=== PATIENT | female | born 1950 | race Caucasian/White ===

== ENCOUNTER 2020-09-28 08:21 | Emergency (ER) | payer MEDICARE, MEDICAID ==
[~2020-09-28] VITALS: Ht 170.2 cm; Wt 61.0 kg
[~2020-09-28 08:21] MED LIST: ASPI-1265 PO; BAC10T PO; CHLO25TA10 PO; CLOP75TA15 PO; LACT1CAP26 PO; LEVO25TA50 PO; LOSA100T57 PO; MECL-183 PO; METO-384 PO; NIFE90TA44 PEG; NITR0.4T51 SL; NYSPWD TP; ROSU40TA PO
[2020-09-28 08:33] VITALS: BP 167/73
[2020-09-28] MEDS ORDERED: AZIT250T29 PO (09:56)
== END 2020-09-28 10:10 | disposition home or self-care (01) ==
LOC: ER 08:21
DX: R05 Cough (principal); R09.81 Nasal congestion; J02.9 Acute pharyngitis, unspecified; Z20.828 Contact with and (suspected) exposure to other viral communicable diseases; Z88.8 Allergy status to other drugs, medicaments and biological substances; Z88.2 Allergy status to sulfonamides; Z88.6 Allergy status to analgesic agent; Z79.899 Other long term (current) drug therapy; Z88.1 Allergy status to other antibiotic agents
CPT/HCPCS: 36415; 71045; 87635; 99284

== ENCOUNTER 2021-05-05 13:34 | Emergency (ER) | payer MEDICARE, MEDICAID ==
[~2021-05-05] VITALS: Ht 167.6 cm; Wt 68.2 kg
[~2021-05-05 13:34] MED LIST changes: -MECL-183 PO; +MECL-226 PO
[2021-05-05] MEDS ORDERED: ibuprofen tablet 400 MG TABLET PO ONE (14:20)
[2021-05-05 15:15] VITALS: BP 131/63
[2021-05-07] MEDS ORDERED: NITR0.4T51 SL (17:11)
== END 2021-05-05 15:16 | disposition home or self-care (01) ==
LOC: ER 13:35
DX: M79.602 Pain in left arm (principal); G89.29 Other chronic pain; M25.562 Pain in left knee; Z87.440 Personal history of urinary (tract) infections; Z90.710 Acquired absence of both cervix and uterus; Z98.890 Other specified postprocedural states; Z56.0 Unemployment, unspecified; Z88.2 Allergy status to sulfonamides; Z91.030 Bee allergy status; Z88.1 Allergy status to other antibiotic agents; Z88.8 Allergy status to other drugs, medicaments and biological substances; Z79.82 Long term (current) use of aspirin; Z79.899 Other long term (current) drug therapy; W19.XXXA Unspecified fall, initial encounter; Y93.89 Activity, other specified; Y92.89 Other specified places as the place of occurrence of the external cause; Y99.8 Other external cause status
CPT/HCPCS: 73080; 73564; 99284

== ENCOUNTER 2021-08-31 12:37 | Emergency (ER) | payer MEDICARE, MEDICAID ==
[~2021-08-31] VITALS: Ht 170.2 cm; Wt 90.9 kg
[~2021-08-31 12:37] MED LIST changes: -BAC10T PO; -LACT1CAP26 PO; -LEVO25TA50 PO; -MECL-226 PO; -NIFE90TA44 PEG; -NYSPWD TP
[2021-08-31 12:43] VITALS: BP 172/86
[2021-08-31] MEDS ORDERED: aspirin 81mg tab.chew PO ONE (12:50)
[2021-08-31 13:19] LABS: BASOPHILS % (AUTO) 0.6 % (0-1); EOSINOPHILS # (AUTO) 0.4 X10'3 (0-0.9); EOSINOPHILS % (AUTO) 4.6 % (0-6); HEMATOCRIT 41.1 % (35.0-45.0); HEMOGLOBIN 13.7 g/dl (12.0-16.0); LYMPHOCYTES # (AUTO) 2.1 X10'3 (1.1-4.8); LYMPHOCYTES % (AUTO) 24.7 % (21-51); MEAN CORPUSCULAR HEMOGLOBIN 29.6 PG (27.0-31.0); MEAN CORPUSCULAR HGB CONC 33.2 g/dL (33.0-36.5); MEAN CORPUSCULAR VOLUME 89.1 FL (78-98); MEAN PLATELET VOLUME 8.1 FL (7.4-10.4); MONOCYTES # (AUTO) 0.8 X10'3 (0-0.9); MONOCYTES % (AUTO) 9.2 % (2-12); NEUTROPHILS # (AUTO) 5.1 X10'3 (1.8-7.7); NEUTROPHILS % (AUTO) 60.9 % (42-75); PLATELET COUNT 239 X10'3 (140-440); RED BLOOD COUNT 4.62 X10'6 (4.20-5.60); RED CELL DISTRIBUTION WIDTH 14.6 % (11.5-14.5); WHITE BLOOD COUNT 8.4 X10'3 (4.5-11.0)
[2021-08-31 13:29] LABS: ALANINE AMINOTRANSFERASE 37 U/L (12-78); ALBUMIN 3.9 G/DL (3.4-5.0); ALKALINE PHOSPHATASE 126 IU/L (46-116); ANION GAP 11 (8-16); ASPARTATE AMINO TRANSFERASE 21 U/L (10-37); BILIRUBIN,TOTAL 0.3 MG/DL (0.1-1.0); BLOOD UREA NITROGEN 17 MG/DL (7-18); CALCIUM 10.4 MG/DL (8.5-10.1); CHLORIDE 109 MMOL/L (99-107); GLUCOSE 99 MG/DL (70-104); POTASSIUM 4.5 MMOL/L (3.5-5.1); SODIUM 141 MMOL/L (135-145); TOTAL CARBON DIOXIDE 21.3 MMOL/L (24-32); TOTAL PROTEIN 7.8 G/DL (6.4-8.2); eGFR 55 ML/MIN
[2021-08-31 13:37] LABS: MAGNESIUM 2.6 MG/DL (1.5-2.4)
[2021-08-31] MEDS ORDERED: HYDR28CR14 TOP (19:33)
== END 2021-08-31 19:45 | disposition home or self-care (01) ==
LOC: ER 12:38
DX: R21 Rash and other nonspecific skin eruption (principal); Z88.2 Allergy status to sulfonamides; Z88.8 Allergy status to other drugs, medicaments and biological substances; Z79.899 Other long term (current) drug therapy
CPT/HCPCS: 36415; 71045; 80053; 83735; 83880; 84484; 85025; 93005; 99285

== ENCOUNTER 2021-09-17 11:45 | Emergency (ER) | payer MEDICARE, MEDICAID ==
[~2021-09-17] VITALS: Ht 170.2 cm; Wt 90.9 kg
[~2021-09-17 11:45] MED LIST changes: +HYDR28CR14 TOP
--- NOTE | 2021-09-17 11:59 | NUR ---
JUDITH VIRGEN NP CALLED REPORT. PT HAS HAD RASH SINCE LATE AUGUST. HIGH B/P WEEKS AGO. 260/104, ASYMPTOMATIC. LAST VISIT , 200/90, CHANGES EKG. NO NEW MED ADJUSTMENTS. SEEN MEDICAL SCIENCE LIAISON IN JANUARY. CURRENTLY ON 50MG METOPROLOL SUC 50MG ER DAILY, 50MG LOSARTIN, PLAVIX 75MG DAILY. NO HX OF AFIB. EF 60% DECEMBER 2020. AORTIC REGUR, STENOSIS LEFT CAROTID 65% (NEEDS SURGICAL INTERVENTION) AND SUBCLAVIAN (OCCLUDED) DR. KRAFT.
[2021-09-17] MEDS ORDERED: aspirin 325mg tablet PO ONE (12:15)
[2021-09-17 12:32] LABS: BASOPHILS % (AUTO) 0.4 % (0-1); EOSINOPHILS # (AUTO) 0.3 X10'3 (0-0.9); EOSINOPHILS % (AUTO) 4.3 % (0-6); HEMATOCRIT 39.7 % (35.0-45.0); HEMOGLOBIN 13.5 g/dl (12.0-16.0); LYMPHOCYTES # (AUTO) 2.3 X10'3 (1.1-4.8); LYMPHOCYTES % (AUTO) 29.1 % (21-51); MEAN CORPUSCULAR VOLUME 88.2 FL (78-98); MEAN PLATELET VOLUME 7.5 FL (7.4-10.4); MONOCYTES # (AUTO) 0.8 X10'3 (0-0.9); MONOCYTES % (AUTO) 10.1 % (2-12); NEUTROPHILS # (AUTO) 4.5 X10'3 (1.8-7.7); NEUTROPHILS % (AUTO) 56.1 % (42-75); PLATELET COUNT 211 X10'3 (140-440); RED CELL DISTRIBUTION WIDTH 14.3 % (11.5-14.5)
--- NOTE | 2021-09-17 12:38 | NUR ---
pt is resting quietly on gurney, family at bedside, pt denies headache, blurred vision, dizziness, chest pain/discomfort
[2021-09-17 12:44] LABS: ALANINE AMINOTRANSFERASE 37 U/L (12-78); ALBUMIN 3.6 G/DL (3.4-5.0); ANION GAP 11 (8-16); ASPARTATE AMINO TRANSFERASE 20 U/L (10-37); BILIRUBIN,TOTAL 0.4 MG/DL (0.1-1.0); BLOOD UREA NITROGEN 10 MG/DL (7-18); CALCIUM 9.9 MG/DL (8.5-10.1); CHLORIDE 108 MMOL/L (99-107); CREATININE 1.11 MG/DL (0.40-0.90); GLUCOSE 84 MG/DL (70-104); SODIUM 144 MMOL/L (135-145); TOTAL CARBON DIOXIDE 25.2 MMOL/L (24-32); TOTAL PROTEIN 7.3 G/DL (6.4-8.2); eGFR 48 ML/MIN
[2021-09-17 12:45] LABS: ALKALINE PHOSPHATASE 120 IU/L (46-116)
[2021-09-17 12:48] LABS: MAGNESIUM 2.3 MG/DL (1.5-2.4)
[2021-09-17 13:33] VITALS: BP 204/97
--- NOTE | 2021-09-17 13:33 | NUR ---
Michelle GRIER aware of BP upon discharge, no orders
== END 2021-09-17 13:35 | disposition home or self-care (01) ==
LOC: ER 11:45
DX: I10 Essential (primary) hypertension (principal); R05.9 Cough, unspecified; F32.9 Major depressive disorder, single episode, unspecified; Z87.440 Personal history of urinary (tract) infections; Z90.710 Acquired absence of both cervix and uterus; Z98.890 Other specified postprocedural states; Z56.0 Unemployment, unspecified; Z88.2 Allergy status to sulfonamides; Z88.8 Allergy status to other drugs, medicaments and biological substances; Z91.030 Bee allergy status; Z88.1 Allergy status to other antibiotic agents; Z79.82 Long term (current) use of aspirin; Z79.899 Other long term (current) drug therapy
CPT/HCPCS: 36415; 71045; 80053; 83735; 84484; 85025; 93005; 99285

== ENCOUNTER 2022-09-07 10:16 | Emergency (ER) | payer MEDICARE, MEDICAID ==
[~2022-09-07] VITALS: Ht 170.2 cm; Wt 92.0 kg
[2022-09-07 10:48] LABS: BASOPHILS # (AUTO) 0.1 X10'3 (0-0.2); BASOPHILS % (AUTO) 0.5 % (0-1); EOSINOPHILS # (AUTO) 0.3 X10'3 (0-0.9); EOSINOPHILS % (AUTO) 2.9 % (0-6); HEMATOCRIT 46.5 % (35.0-45.0); HEMOGLOBIN 15.6 g/dl (12.0-16.0); LYMPHOCYTES # (AUTO) 2.9 X10'3 (1.1-4.8); LYMPHOCYTES % (AUTO) 29.7 % (21-51); MEAN CORPUSCULAR HEMOGLOBIN 29.7 PG (27.0-31.0); MEAN CORPUSCULAR HGB CONC 33.6 g/dL (33.0-36.5); MEAN CORPUSCULAR VOLUME 88.4 FL (78-98); MEAN PLATELET VOLUME 7.7 FL (7.4-10.4); MONOCYTES # (AUTO) 0.8 X10'3 (0-0.9); MONOCYTES % (AUTO) 8.3 % (2-12); NEUTROPHILS # (AUTO) 5.8 X10'3 (1.8-7.7); NEUTROPHILS % (AUTO) 58.6 % (42-75); PLATELET COUNT 178 X10'3 (140-440); RED BLOOD COUNT 5.26 X10'6 (4.20-5.60); RED CELL DISTRIBUTION WIDTH 14.4 % (11.5-14.5); WHITE BLOOD COUNT 9.9 X10'3 (4.5-11.0)
[2022-09-07] MEDS ORDERED: metoprolol tartrate 50mg tablet PO ONE (10:50)
[2022-09-07] MEDS ORDERED: amLODIPine 5mg tablet PO ONE (10:50)
[2022-09-07 11:06] LABS: ALANINE AMINOTRANSFERASE 33 U/L (12-78); ALKALINE PHOSPHATASE 129 IU/L (46-116); ANION GAP 10 (8-16); ASPARTATE AMINO TRANSFERASE 25 U/L (10-37); BILIRUBIN,TOTAL 0.4 MG/DL (0.1-1.0); BLOOD UREA NITROGEN 12 MG/DL (7-18); CALCIUM 10.9 MG/DL (8.5-10.1); CHLORIDE 105 MMOL/L (99-107); CREATININE 1.09 MG/DL (0.40-0.90); GLUCOSE 95 MG/DL (70-104); POTASSIUM 4.4 MMOL/L (3.5-5.1); SODIUM 138 MMOL/L (135-145); TOTAL CARBON DIOXIDE 23.5 MMOL/L (24-32); TOTAL PROTEIN 8.2 G/DL (6.4-8.2); eGFR 49 ML/MIN
[2022-09-07] MEDS ORDERED: LIDOcaine 1% W/epiNEPHrine 1:200,000 10ml vial IJ ONE (11:45)
[2022-09-07] MEDS ORDERED: normal saline 1000ML IV soln IVB ONE (11:45)
[2022-09-07] MEDS ORDERED: LIDOCAINE 1%/EPI 1:100,000 inj. 10 ML multi-dose vial IJ ONE ×2 (11:50→11:55)
[2022-09-07] MEDS ORDERED: hydrALAZINE 25 MG tablet PO ONE (12:55)
[2022-09-07 13:23] LABS: CLARITY,URINE CLOUDY (Clear); COLOR,URINE YELLOW (Yellow); GLUCOSE, URINE NEGATIVE (Neg); KETONES,URINE NEGATIVE (Neg); LEUKOCYTE ESTERASE ,URINE NEGATIVE (Neg); NITRITES, URINE POSITIVE (Neg); OCCULT BLOOD,URINE TRACE-INTACT (Neg); PH,URINE 6.5 (4.8-8.0); PROTEIN,URINE NEGATIVE (Neg); UROBILINOGEN,URINE 0.2 E.U/dL (0.2-1.0)
[2022-09-07 13:28] LABS: UA COLLECTION TYPE CLN CATCH MIDSTREAM
[2022-09-07 13:29] LABS: BACTERIA,URINE 3+ /HPF (Neg); MUCUS STRANDS FEW /LPF (Neg); SQUAMOUS EPITHELIAL CELL,UR FEW /LPF (FEW)
[2022-09-07 13:30] LABS: RBC,URINE 0-2 /HPF (0-2); WBC,URINE 0-4 /HPF (0-4)
[2022-09-07] MEDS ORDERED: CEPH-585 PO (14:03)
[2022-09-07] MEDS ORDERED: cephalexin 250mg capsule PO ONE (14:05)
[2022-09-07 14:10] VITALS: BP 199/70
--- NOTE | 2022-09-07 14:38 | NUR ---
Pt given and understands d/c instructions. IV d/c'd, catheter was intact. Ambulatory with a slow steady gait.
== END 2022-09-07 14:40 | disposition home or self-care (01) ==
LOC: ER 10:17
DX: S01.112A Laceration without foreign body of left eyelid and periocular area, initial encounter (principal); R55 Syncope and collapse; N39.0 Urinary tract infection, site not specified; I10 Essential (primary) hypertension; Z88.8 Allergy status to other drugs, medicaments and biological substances; Z88.2 Allergy status to sulfonamides; Z91.030 Bee allergy status; Z90.710 Acquired absence of both cervix and uterus; Z56.0 Unemployment, unspecified; X58.XXXA Exposure to other specified factors, initial encounter; Y93.89 Activity, other specified; Y92.89 Other specified places as the place of occurrence of the external cause; Y99.8 Other external cause status
CPT/HCPCS: 12013; 36415; 70450; 71045; 72125; 73110; 80053; 81001; 83880; 84484; 85025; 93005; 99285; J3490; J7030; J7040; A6449